=== PATIENT | female | born 1965 | race Caucasian/White ===

== ENCOUNTER 2024-11-21 13:51 | Outpatient (CLI) | payer OTHER, SELFPAY ==
--- NOTE | 2024-11-21 | ECHO_ITS ---
Patient Info Name: Skyla Kearney Age: 59 years : 1965 Gender: Female Ht: 69 in Wt: 200 lbs BSA: 2.12 m2 HR: 79 bpm BP: 141 / 88 mmHg Heart Rhythm: Sinus Rhythm Technical Quality: Good Exam Date: 11/21/2024 2:07 PM Patient Status: O Admit Date: 11/21/2024 Exam Type: CA echo doppler color flow Complete two-dimensional, color flow and Doppler transthoracic echocardiogram is performed. Handyperson: Sridevi De La Torre Attending Provider: Herson Gama Summary 1. Complete two-dimensional, color flow and Doppler transthoracic echocardiogram is performed. 2. Left ventricular chamber dimension is normal. 3. Left ventricular systolic function is normal, estimated at 60-65. 4. There is no increased left ventricular wall thickness. 5. The left ventricular diastolic function is grade I diastolic dysfunction. 6. Left atrial chamber dimension is mildly enlarged. 7. There is mild mitral valve regurgitation. 8. There is mild tricuspid valve regurgitation. Left Ventricle Left ventricular chamber dimension is normal. Left ventricular systolic function is normal, estimated at 60-65. There is no increased left ventricular wall thickness. The left ventricular diastolic function is grade I diastolic dysfunction. Right Ventricle Right ventricular chamber dimension is normal. Right ventricular systolic function is normal. Left Atria Left atrial chamber dimension is mildly enlarged. Right Atria Right atrial chamber dimension is normal. Atrial Septum Intact interatrial septum visualized by color flow imaging. Aortic Valve The aortic valve is trileaflet. There is mild aortic valve sclerosis. There is no aortic valve stenosis. There is trace aortic valve regurgitation. Pulmonic Valve The pulmonic valve is normal. There is no pulmonic valve stenosis. There is trace pulmonic regurgitation. Mitral Valve The mitral valve has thickened leaflets. There is no mitral valve stenosis. There is mild mitral valve regurgitation. Tricuspid Valve The tricuspid valve leaflets are normal. There is no significant tricuspid valve stenosis. There is mild tricuspid valve regurgitation. No pulmonary hypertension, estimated pulmonary arterial systolic pressure is 30 mmHg. Pericardium/Pleural The pericardium appears normal. There is no pericardial effusion. Inferior Vena Cava Normal inferior vena cava with <50% collapse upon inspiration consistent with elevated right atrial pressure, 10 mmHg. Aorta The aortic root size at the sinus of Valsalva is normal. Left Ventricular Outflow Tract Name Value Normal LVOT 2D LVOT Diameter 2.0 cm LVOT Doppler LVOT Peak Velocity 98 cm/s LVOT Peak Gradient 4 mmHg LVOT Mean Gradient 2 mmHg LVOT VTI 18 cm LVOT VTI/AV VTI Ratio 0.6 LVOT Stroke Volume 54 ml LVOT CO 3.7 l/min LVOT CI 1.7 l/min/m2 Pulmonic Valve Name Value Normal RVOT Doppler RVOT Peak Velocity 74 cm/s RVOT Peak Gradient 2 mmHg PV Doppler PV Peak Velocity 110 cm/s PV Peak Gradient 5 mmHg Mitral Valve Name Value Normal MV Diastolic Function MV E Peak Velocity 82 cm/s MV A Peak Velocity 96 cm/s MV E/A 0.9 MV Decel Time (PW) 276 ms MV Annular TDI MV E/e' (Septal) 9.9 MV E/e' (Lateral) 12.2 MV E/e' (Average) 11.1 Tricuspid Valve Name Value Normal TV Regurgitation Doppler TR Peak Velocity 224 cm/s TR Peak Gradient 20 mmHg Estimated PAP/RSVP RA Pressure 10 mmHg <=5 PA Systolic Pressure 30 mmHg <36 RV Systolic Pressure 30 mmHg <36 TV Annular TDI TV Lateral Jaleesa s' Velocity 13.6 cm/s >=9.5 Aorta Name Value Normal Ascending Aorta Ao Root Diameter (MM) 2.8 cm Ao Root Diam Index (MM) 1.3 cm/m2 Aortic Valve Name Value Normal AV Doppler AV Peak Velocity 133 cm/s AV Peak Gradient 7 mmHg AV Mean Gradient 4 mmHg AV VTI 27 cm AV Area (Cont Eq VTI) 2.0 cm2 >=3.0 AV Area (Cont Eq Anil) 2.3 cm2 AV DI (Anil) 0.74 AV Regurgitation 2D LVOT Area 3.1 cm2 Ventricles Name Value Normal LV Dimensions 2D/MM IVS Diastolic Thickness (2D) 0.9 cm 0.6-1.0 LVID Diastole (2D) 4.1 cm 3.8-5.2 LVIW Diastolic Thickness (2D) 0.8 cm 0.6-0.9 LVID Systole (2D) 2.5 cm 2.2-3.5 LVOT Diameter 2.0 cm LV Mass (2D Cubed) 103.62 g 67.00-162.00 LV Mass Index (2D Cubed) 49 g/m2 43-95 Relative Wall Thickness (2D) 0.39 <=0.42 LV Fractional Shortening/Ejection Fraction 2D/MM LV Fractional Shortening (2D) 38 % 27-45 LV EF (2D Teichholz) 69 % LV Diastolic Volume (4C MOD) 43 ml LV EF (4C MOD) 61 % LV Diastolic Volume (2C MOD) 48 ml LV EF (2C MOD) 61 % LV Diastolic Volume (BP MOD) 46 ml 46-106 LV Diastolic Volume Index (BP MOD) 22 ml/m2 29-61 LV Systolic Volume (BP MOD) 18 ml 14-42 LV Systolic Volume Index (BP MOD) 9 ml/m2 8-24 LV EF (BP MOD) 60 % 54-74 LV Diastolic Length (4C) 7.0 cm LV Systolic Length (4C) 5.5 cm LV Stroke Volume (4C MOD) 27 ml Atria Name Value Normal LA Dimensions LA Dimension (MM) 4.0 cm 2.7-3.8 LA Volume (4C A-L) 42 ml LA Volume (BP A-L) 52 ml RA Dimensions RA Area (4C) 14.3 cm2 <=18.0 Report Signatures
--- OUTSIDE RECORDS SUMMARY | 2024-11-21 14:07 | XMS_ITS | Encounter Summary ---
Author Organization [facility] Healthcare Address [address] [place] [address] Care Team Providers Care Shipper Receiver Name Role Phone Herson Gama MD Primary Care Provider [phone] Brandy Lindo MD Primary Care Provider [phone] Encounter Details Date Type Department Care Team (Late st Contact Info) Description 02/13/2019 Telephone [facility] [address] [facility] [facility] [address] [place] [address] Dunia Souza, RT Social History Tobacco Use Types Packs/Day Years Used Date Smoking Tobacco: Never Smokeless Tobacco: Never Alcohol Use Standard Drinks/Week Comments No 0 (1 standard drink = 0.6 oz pur e alcohol) Comments No Sex and Gender Information Value Date Recorded Sex Assigned at Not on file 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
--- OUTSIDE RECORDS SUMMARY | 2024-11-21 14:07 | XMS_ITS | Data Portability ---
Author Organization [facility] Address [address] [facility] [place] [address] Care Team Providers Care Spring Encaser Name Role Phone HERSON GAMA Primary Care Provider [phone] KANE MEJIA Waste Reclaimer Assessment Encounter Date Assessment Date Assessment LastModified by Organization Details LastModified Time 10/29/2024 10/29/2024 We will go ahead and start losartan 25 mg daily after about 1-2 weeks start atorvastatin 10 mg daily I do have copies of her last blood work about a year ago where total cholesterol was 220 LDL 139 triglycerides of 349. Today her EKG shows a sinus arrhythmia with a PVC appears to have some low voltage QRS precordial and some poor R-wave progression across the precordial leads CBC CMP lipid with cardio inflammatory markers T3-T4 TSH lipoprotein a level. Complete echo. I have recommended cardiac calcium scoring. I will see her back in 1 month obtain records from previous primary care clinic we did discuss weight loss as well she wants to hold off on discussing any GLP 1 agents further [email or web address] Not available 10/29/2024 20:58:26 Plan of Treatment Reminders Order Date Submit Date Provider Last Modified By Organization Details Last Modified Time Details Appointments ANY 15 2024 10:30A M Herson Gama MD Not available Not available Not available Lab lipoprote in (A), serum 2024 025 [facility], [address] [address], [place], [address], 11/19/2024 04:17:25 lipid panel, blood 2024 025 [facility], [address] [address], [place], [address], 11/02/2024 16:20:43 CMP, serum or plasma 2024 025 [facility], [address] [address], [place], [address], 11/02/2024 16:20:43 CBC w/ auto diff 2024 025 [facility], [address] [address], [place], [address], 11/02/2024 16:20:42 TSH, serum or plasma 2024 025 [facility], [address] [facility] [address], [place], [address], 11/20/2024 14:22:33 T4, free, serum 2024 025 [facility], [address] [address], [place], [address], 11/20/2024 14:22:33 T3, free, serum or plasma 2024 025 [facility], [address] [address], [place], [address], 11/20/2024 14:22:33 Referral None recorded. Procedures None recorded. Surgeries None recorded. Imaging US, echocardi ogram 2024 025 [facility] [address], [place], [address], 10/30/2024 11:14:41 CT, coronary calcium score 2024 025 [facility], [address], [place], [address], 10/30/2024 11:15:24 Medication Orders None recorded. Patient TargetsNo targets recorded. Patient Instructions Encounter Date Encounter Id Patient Instructions Last Modified By Organization Details Last Modified Time 10/29/2024 [id number] A healthy lifestyle: care instructions [email or web address] Not available 10/29/2024 16:40:16 Reason for Referral None Reported. Results Created Date Observation Date Name Description Value Unit Range Abnormal Flag Note LastModifiedBy Organization Detail LastModifiedTime Result Notes None recorded. Problems Name Problem SNOMED Code Status Onset Date Resolution Date Notes Provider Name and Address Organization Details Recorded Time Electrocardiog mildred abnormal 789288451 Active 2024 DAVID Garcia, [place] - [facility] 17:27:00 Essential hypertension 92863580 Active 2024 Luigi Messer [place] null, [place] [facility] 17:27:01 Overweight 325594435 Active 2024 Luigi Messer [place], [place] [facility] 17:27:02 Overweight in adulthood with body mass index of 25 or more but less than 30 099535101 Active 2024 Luigi Messer [place], [place] [facility] 17:27:04 Mixed hyperlipidemia 241420972 Active 2024 Herson Gama MD Attn: Jena quinonez,[address] [place], [address] [place] [facility] 20:58:43 Problem Notes None recorded. Procedures Surgical History Date Name Laterality Status Provider Name and Address Organization Details Recorded Time 03/04/20 18 Total hysterectomy completed [facility] [place] [facility] 10/29/2024 16:17:34 02/02/20 09 cholecystectomy completed [facility] [place] [facility] 10/29/2024 16:17:09 10/30/19 02 appendectomy completed [facility] [place] [facility] 10/29/2024 16:16:40 09/01/18 80 rhinoseptoplasty completed [facility] [place] [facility] 10/29/2024 16:18:29 Imaging Results None recorded. Procedure Notes None recorded. Medical Equipment None Reported. Allergies Allergen ID Allergen Name Allergen Category Reaction Reaction Severity Criticality Documentation Date Start Date Code Code System Note Provider Name and Address Organization Details Recorded Time 18870709 bupropion Not available hallucina tions other Not available Not available high 10/29/20242017 81412 RxNorm Muscl e tremo rs unrec ogniz ed react ion (text : Anxie ty, code: 32475 002) (from [facility]) DAVID Castano, [place] - [facility] 5 16:14:01 Medications Name Sig Start Date Stop Date Status Note LastModified by Organization Details LastModified Time estradiol 0.075 mg/24 [address] semi[address] transdermal patch [address] 1 PATCH ON THE SKIN 2 TIMES A WEEK. active Not Available Not Available No t Available fluconazole 150 mg tablet TAKE 1 TABLET BY MOUTH EVERY DAY FOR 3 DAYS 10/29 completed Not Available Not Available Not Available prednisone 20 mg tablet TAKE 1 TABLET (20 MG TOTAL) BY MOUTH DAILY FOR 5 DAYS. 10/29 completed Not Available Not Available Not Available amoxicillin 875 mg tablet TAKE 1 TABLET BY MOUTH TWICE A DAY FOR 10 DAYS 10/29 completed Not Available Not Available Not Available alprazolam 0.25 mg tablet TAKE 1 TABLET BY MOUTH EVERY DAY NEEDED active Not Available Not Available No t Available mirtazapine 45 mg tablet TAKE 1 TABLET BY MOUTH EVERY NIGHT AT BEDTIME 10/29 completed Not Available Not Available Not Available amoxicillin 875 mg-potassium clavulanate 125 mg tablet TAKE 1 TABLET BY MOUTH EVERY 12 HOURS FOR 7 DAYS 10/29 completed Not Available Not Available Not Available nitrofuranto in monohydrate/ macrocrystal s 100 mg capsule TAKE 1 CAPSULE BY MOUTH TWICE A DAY FOR 7 DAYS 10/29 completed Not Available Not Available Not Available Vitals Date Recorded Body height Body mass index (BMI) Body weight Heart rate Oxygen saturation Oxygen saturation in Arterial blood by Pulse oximetry Systolic blood pressure Diastolic blood pressure Provider Name and Address Organization Details Last Updated DateTime 175.26 cm 29.5 kg/m2 71496.4 7 g 97 /min 97 % 97 % 140 mm[Hg] 92 mm[Hg] Angelique Menon MA [place] - [facility] 5 16:13:37 Social History Question Answer Notes LastModified by Organizat ion Details LastModified Time Tobacco Smoking Status Never Smoker Angelique Menon MA [facility], [place] - [facility] 10/29/2024 16:15:24 Are You Blind Or Do You Have Difficulty Seeing? No Information n ot available 10/29/2024 What Is Your Level Of Caffeine Consumption? Occasional Information not available 10/29/2024 In The 14 Days Before Symptom Onset, Have You Had Close Contact With A Laboratory-confirm ed COVID-19 While That Case Was Ill? No Information n ot available 10/29/2024 In The 14 Days Before Symptom Onset, Have You Had Close Contact With A Person Who Is Under Investigation For COVID-19 While That Person Was Ill? No Information not available 10/29/2024 Have You Been To An Area Known To Be High Risk For COVID-19? No Information not available 10/29/2024 Are You Deaf Or Do You Have Serious Difficulty Hearing? No Information not available 10/29/2024 Are There Any Guns Present In Your Home? No Information not available 10/29/2024 What Was The Date Of Your Most Recent Tobacco Screening? 10/29/2024 Information not available 10/29/2024 Do You Use Your Seat Belt Or Car Seat Routinely? Yes Information not available 10/29/2024 Do You Have Smoke And Carbon Monoxide Detectors In Your Home? Yes Information not available 10/29/2024 Do You Use Sunscreen Routinely? No Information not available 10/29/2024 Has Tobacco Cessation Counseling Been Provided? No Information not available 10/29/2024 Sex: Female Functional Status Question Answer Note LastModified by Organizat ion Details LastModified Time Do you use any illicit or recreational drugs? No Information not available 10/29/2024 Do you or have you ever used any other forms of tobacco or nicotine? No Information not available 10/29/2024 What is your level of alcohol consumption? Occasional Information not available 10/29/2024 Are you able to care for yourself? Yes Information n ot available 10/29/2024 Mental Status None recorded. Family History Nothing Reported. Medical History Condition Response Anxiety Disorder Y Depression Y Gynecological HistoryNo gynecological history recorded. Obstetrics History GPAL:G 0 P 0 0 0 0 Past Encounters Encounter ID Performer Location Encounter Start Date Encounter Closed Date Diagnosis/Indication Diagnosis SNOMED-CT Code Diagnosis ICD10 Code Diagnosis Note [id number] Herson Gama MD [facility] [place] [facility] [address] [place] [address] 10/29/2024 15:44:48 10/29/2024 17:24:49 Overweight in adulthood with body mass index of 25 or more but less than 30 956659203 Z68.29 Overweight 324577587 E66 .3 Essential hypertension 27155506 I10 Electrocar diogram abnormal 995475700 R94.31 Mixed hyperlipidemia 267 930786 E78.2 Adult heal th examination 034592741 Z00.00 Health Concerns Section Related Observation LastModified by Organization Detai ls LastModified Time None Recorded Concern Status LastModified by Organization Details LastModified Time None Recorded Advance Directives Directive None Recorded Payers Encounter Date Sequence Insurance Name Policy Number Policy Lombardo Covered Member ID Lombardo Member ID Guarantor Name 10/29/2024 1 [facility] [id number] Basil Kearney [id number] Skyla Christel Notes Date Note Type Note Provider Name and Address Organization Details Recorded Time 10/29/2024 text/html 59-year-old with dyslipidemia comes in establishing care medications none allergies SSRIs called mental status changes caused some mental status changes in her symptoms to be secondary to gallbladder disease she actually was evaluated at [facility] in [facility] and went through ECT that has been 5 years ago or more no problems since. Surgeries cholecystectomy appendectomy prolapsed uterus then a broken nose family history risk for cardiovascular disease mother specifically with hypertension hyperlipidemia and CVA father unfortunately about 2 weeks ago from prostate and bladder cancer he also had Parkinson's disease several uncles and aunts with heart disease socially does not smoke vape occasional alcohol she is not working currently she was up-to-date with the skin therapist had a colonoscopy 2 years ago in [place] [facility] blood [facility] glass technician appointment Herson Gama MD Attn: Accounting[address] [facility], [place], [address], [place] [facility] 10/29/2024 21:01:06 OBGyn Episode No OBEpisode recorded.
--- OUTSIDE RECORDS SUMMARY | 2024-11-21 14:07 | XMS_ITS | Clinical Summary ---
Author Organization [facility] Address [address] [place] [address] Care Team Providers Care Puttier Name Role Phone Brandy Lindo MD Primary Care Provider [phone] Allergies Active Allergy Reactions Criticality Noted Date Comments Bupropion Other (See comments),Delusions,Agitation Medium 03/15/2018 Muscle tremors Medications estradioL (VIVELLE-DOT) 0.075 mg/[address] 1 patch on the skin 2 (two) times a week 24 patch 3 08/02/2024 Active Active Problems Problem Noted Date Diagnosed Date Uterine prolapse 03/02/2018 Overview (03/02/2018): Added automatically from request for surgery [id number] Immunizations Immunization Administration Dates Next Due Influenza, Quadrivalent, Spl it, Preservative Free, Intramuscular 04/18/2022 Surgical History Surgery Date Site/Laterality Comments APPENDECTOMY CHOLECYSTECTOMY URETHRAL DIVERTICULECTOMY HYSTERECTOMY Family History Medical History Relation Name Comments Hypertension Brother Family history of hypertension - (Added by TW Conv) Cancer Father Prostate cancer Father Coronary artery disease Father's Sister 2 Coronary artery disease Father's Sister 3 Cancer Mother smoldering myel yasmeen Dementia Mother Stroke Mother Ovarian cancer Mother's Sister 1 Relation Name Status Comments Brother Daughter Alive Father Alive Father's Sister 1 Alive Father's Sister 2 (Age 70) Father's Sister 3 (Age 80) Maternal Grandmother (Age 82) Mother Alive Mother's Sister 1 Alive Mother's Sister 2 Alive Mother's Sister 3 Alive Mother's Sister 4 Alive Paternal Grandmother (Age 80) Sister Alive Social History Tobacco Use Types Packs/Day Years Used Date Smoking Tobacco: Never Smokeless Tobacco: Never Alcohol Use Standard Drinks/Week Comments No 0 (1 standard drink = 0.6 oz pur e alcohol) AUDIT-C Answer Date Recorded Q1: How often do you have a drink containing alc ohol? 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 Gender Identity Female 03/29/2024 8:09 AM CDT Sexual Orientation Not on file Obstetrics History Para Term AB IAB SAB Ectopic Multiple Livin g Live Births 3 3 3 3 3 Date Outcome GA Total Labor Labor/2nd/3rd Weight Sex Type Anes PTL Nimisha A1 A5 Name Clin 1993 Term M Vaginal Livin g Brady 1997 Term M Vaginal Livin g Benjamin 2003 Term F Vaginal Livin g Shona Last Filed Vital Signs Vital Sign Reading Time Taken Comments Blood Pressure 152/98 07/10/2024 1:08 PM BARN OPERATOR Pulse 83 03/22/2018 11:00 AM CDT Temperature 36.7 C (98 F) 03/22/2018 11:00 AM CDT Respiratory Rate 16 03/22/2018 11:00 AM CDT Oxygen Saturation 97% 03/22/2018 11:00 AM CDT Inhaled Oxygen Concentration - - Weight 92.2 kg (203 lb 4.8 oz) 07/10/2024 1:08 P M BARN OPERATOR Height 175.3 cm (5' 9 ) 07/10/2024 1:08 PM BARN OPERATOR Body Mass Index 30.02 07/10/2024 1:08 PM BARN OPERATOR Plan of Treatment Health Maintenance Due Date Last Done Comments Colon Cancer Screening-Colonoscopy 1965 Depression Screening 1965 Hepatitis C Screening 1965 Hepatitis B Screening 1982 Covid-19 Vaccine ( season) 2024 07/08/2021 Breast Cancer Screening-Mammogram 04/05/2025 04/05/2024, 03/24/2023, 03/24/2023, Additional history exists Regular Well Visit/Exam 18-64 07/10/2025 07/10/2024 DTaP/Tdap/Td Vaccine (2 - Td or Tdap) 01/17/2034 01/18/2024 Zoster Vaccine Completed 11/01/2023, 04/21/2023 Influenza Vaccine Completed 04/16/2024, , 04/18/2022, Additional history exists Pneumococcal vaccine <65 Aged Out No longer eligible based on patient's age to complete this topic Medical Devices Implanted Type Area Crotch Piece Baster Device Identifier Shelf Expiration Date Model / Serial / Lot Ocsc [id number] Upsylon 35.4cm Elongation Profile Lightweight Large Pore Low - [id number] Implanted:Qty: 1 on 03/21/2018 by Yohan Ames MD at [facility]esh N/A: Pelvis Ocsc 12/31/2020 [id number] / / [id number] Procedures Procedure Name Priority Date/Time Associated Diagnosis Comments SCREENING MAMMOGRAM BILATERAL W CHRISTIANO Schedule Routine, Read Routine (OP Routine) 04/05/2024 2:18 PM CDT Screening mammogram, encounter for from Last 3 Months or Most Recently Relevant to Health Maintenance Results * Screening Mammogram Bilateral W Christiano (04/05/2024 2:18 PM CDT) Anatomical Region Laterality Modality Breast Bilateral Mammography Narrative 04/10/2024 2:32 PM CDT Examination: Screening Mammogram Bilateral W Christiano: 04/05/24 Clinical: Screening mammogram, encounter for. Prior Study Comparisons: Comparison was made to the prior available relevant studies at the time of interpretation. Findings: Screening Mammogram Bilateral W Christiano Bilateral No significant masses, malignant type calcifications, skin thickening, nipple retraction, or significant lymphadenopathy is noted in either breast. Computer Aided Detection was utilized for the interpretation of this study. There are scattered areas of fibroglandular density. The patient will be notified of results by letter. Impression: BI-RADS ATLAS category (overall): 1 - Negative Overall Assessment: 1 - Negative Recommendation: - Routine Screening Mammogram in 1 Yr for both breasts. us Self Screening Mammogram IMG MAMMO PROCEDURES Fi nal Result from Last 3 Months or Most Recently Relevant to Health Maintenance Insurance ACE*COMM ACCESS OOS [employer] OOS [facility] CHOICE PLUS Advance Directives For more information, please contact: [phone] Documents on File Type Date Recorded Patient Aircraft General Repair Mechanic Expl anation ADVANCE DIRECTIVE 03/21/2018 7:09 AM * Full Code (Latest Code Status on File) Date Activated Date Inactivated Comments 03/21/2018 2:33 PM 03/22/2018 4:02 PM Care Teams Puttier Relationship Specialty Start Date End Date Brandy Lindo MD [address] [facility] [address] [place] [address] PCP - General Obstetrics and Gynecology 02/02/23
--- OUTSIDE RECORDS SUMMARY | 2024-11-21 14:07 | XMS_ITS | Clinical Summary ---
Author Organization [facility] Address [address] [place] [address] Care Team Providers Care Home Therapy Clinician Name Role Phone Unavailable Primary Care Provider Unavailabl e Immunizations Immunization Administration Dates Next Due Covid-19, Mrna, Lnp-s, Pf, 30 Mcg/0.3 Ml Dose (P fizer) 07/08/2021 Social History Tobacco Use Types Packs/Day Years Used Date Smoking Tobacco: Never Assessed Comments Unknown Sex and Gender Information Value Date Recorded Sex Assigned at Not on file Legal Sex Female 11:27 AM RN OCCUPATIONAL Gender Identity Not on file Sexual Orientation Not on file Plan of Treatment Health Maintenance Due Date Last Done Comments Hepatitis C Virus (HCV) Screening 1964 TdaP Immunization 1964 Hepatitis B Immunization (1 of 3 - 19+ 3-dose series) 10/17/1983 Colonoscopy 2009 Colorectal Cancer Screening 2009 Cologuard 2014 Immunochemical Fecal Occult Blood 2014 Pneumococcal Immunization (5 0+ years) (1 of 1 - PCV) 2014 Zoster Immunization (1 of 2) 2014 Influenza Immunization (#1) 2024 04/16/2017 SARS-COV-2 Immunization ( - 2023- season) 2024 07/08/2021, 09/08/2020 Respiratory Syncytial Virus (RSV) Immunization (Adult) (1 - 1-dose 75+ series) 10/17/2039 Cervical Cancer Screening (CCS) Discontinued Pap Smear Discontinued 04/14/2020 HPV/Cotest Discontinued Meningococcal Immunization (ACWY) Aged Out No longer eligible based on patient's age to complete this topic Rotavirus Immunization Aged Out No lo nger eligible based on patient's age to complete this topic
--- OUTSIDE RECORDS SUMMARY | 2024-11-21 14:07 | XMS_ITS | Encounter Summary ---
Author Organization [facility] Address [address] [place] [address] Care Team Providers Care Field Auditor Name Role Phone Unavailable Primary Care Provider Unavailabl e Encounter Details Date Type Department Care Team (Late st Contact Info) Description 12/06/2003 Outpatient Historical [facility] [place] [place] [address] [place] [address] Mk Moore, DO [address] [address] Social History Tobacco Use Types Packs/Day Years Used Date Smoking Tobacco: Never Assessed Comments Unknown Sex and Gender Information Value Date Recorded Sex Assigned at Not on file Legal 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
--- OUTSIDE RECORDS SUMMARY | 2024-11-21 14:07 | XMS_ITS | CONTINUITY OF CARE DOCUMENT ---
Author Name carlin gillis Address Unknown Organization [facility] Address [address] [address] [facility] [address] [place] [address] Phone [phone] Care Team Providers Care Cruise Director Name Role Phone Barbara SHELTON, Jessica Unavailable [phone] Herson Gama DO Unavailable [phone] Herson Gama DO Unavailable PROBLEMS Condition Status Date Provider Notes Cardiovascular screening active Judi Moore rd Abnormal electrocardiogram active Judi angel [employer]ANCE PROVID[employer] Payer name Policy type / Coverage type [place] red libertarian ID SELF PAY TREATMENT PLAN Date Name CT, Coronary Calcium Score
--- OUTSIDE RECORDS SUMMARY | 2024-11-21 14:07 | XMS_ITS | Referral Summary ---
Author Organization [facility] Address [address] [place] [address] Care Team Providers Care Chief Construction Inspector Name Role Phone Brandy Lindo MD Primary Care Provider Allergies Active Allergy Reactions Criticality Noted Date Comments Bupropion Other (See comments),Delusions,Agitation Medium 03/15/2018 Muscle tremors Medications estradioL (VIVELLE-DOT) 0.075 mg/[address] 1 patch on the skin 2 (two) times a week 24 patch 3 08/02/2024 Active Active Problems Problem Noted Date Diagnosed Date Uterine prolapse 03/02/2018 Overview (03/02/2018): Added automatically from request for surgery [id number] Immunizations Immunization Administration Dates Next Due Influenza, Quadrivalent, Spl it, Preservative Free, Intramuscular 04/18/2022 Social History Tobacco Use Types Packs/Day Years [...] on file 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 Gender Identity Female 03/29/2024 8:09 AM CDT Sexual Orientation Not on file Last Filed Vital Signs Vital Sign Reading Time Taken Comments Blood Pressure 152/98 07/10/2024 1:08 PM WEB DESIGN INSTRUCTOR Pulse 83 03/22/2018 11:00 AM CDT Temperature 36.7 C (98 F) 03/22/2018 11:00 AM CDT Respiratory Rate 16 03/22/2018 11:00 AM CDT Oxygen Saturation 97% 03/22/2018 11:00 AM CDT Inhaled Oxygen Concentration - - Weight 92.2 kg (203 lb 4.8 oz) 07/10/2024 1:08 P M WEB DESIGN INSTRUCTOR Height 175.3 cm (5' 9 ) 07/10/2024 1:08 PM WEB DESIGN INSTRUCTOR Body Mass Index 30.02 07/10/2024 1:08 PM WEB DESIGN INSTRUCTOR Plan of Treatment Not on file Medical Devices Implanted Type Area Media Producer Device Identifier Shelf Expiration Date Model / Serial / Lot [employer] [id number] Upsylon 35.4cm Elongation Profile Lightweight Large Pore Low - [id number] Implanted:Qty: 1 on 03/21/2018 by Yohan Ames MD at [facility] Mesh N/A: Pelvis [employer] 12/31/2020 [id number] / / [id number] Procedures Procedure Name Priority Date/Time Associated Diagnosis [...] Most Recently Relevant to Health Maintenance Insurance [employer] [facility] CHOICE [facility]US [facility] HMO/PPO Address: [place] [address] Advance Directives For more information, please contact: [phone] Documents on File Type Date Recorded Patient Backfiller Expl anation ADVANCE DIRECTIVE 03/21/2018 7:09 AM * Full Code (Latest Code Status on File) Date Activated Date Inactivated Comments 03/21/2018 2:33 PM 03/22/2018 4:02 PM Care Teams Chief Construction Inspector Relationship Specialty Start Date End Date Brandy Lindo MD [address] [facility] [address] [place] [address] PCP - General Obstetrics and Gynecology 02/02/23
--- OUTSIDE RECORDS SUMMARY | 2024-11-21 14:07 | XMS_ITS | Clinical Summary ---
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 Gender Identity Not on file Sexual Orientation Not on file Plan of Treatment Health Maintenance Due Date Last Done Comments DTAP/TDAP/TD VACCINES (1 - Tdap) 10/17/1983 HPV/Cotest (21-29) 1985 CERVICAL CANCER SCREENING 1994 HPV/Cotest (30-65) 1994 PAP SMEAR 1994 BREAST CANCER SCREENING 2004 COLORECTAL SCREENING 2009 Colorectal Cancer Screening 2009 FIT-DNA Q 3 years 2009 FIT/FOBT Q 1 year 2009 Flex Sig/CT Colonography Q 5 years 2009 ZOSTER VACCINE (1 of 2) 2014 INFLUENZA VACCINE (#1) 2024 RSV VACCINE (60+ or ) (1 - 1-dose 75+ series) 10/17/2039 HEPATITIS B VACCINES Aged Out No long er eligible based on patient's age to complete this topic
--- OUTSIDE RECORDS SUMMARY | 2024-11-21 14:07 | XMS_ITS | Clinical Summary ---
Author Organization [facility] Address [address] [place] [address] Care Team Providers Care Piping Designer Name Role Phone Unavailable Primary Care Provider Unavailabl e Source Comments [facility],non-owned Affiliates and Associated Physician Practices is amultiple site organization consisting of ambulatory clinics and hospital sitesin [place], [place], [place] and [place]. This disclosure is being madepursuant to the Care Everywhere program and may not contain all information available regarding this patient. Last updated 18.[facility] Social History Tobacco Use Types Packs/Day Years Used Date Smoking Tobacco: Never Assessed Comments Unknown Sex and Gender Information Value Date Recorded Sex Assigned at Not on file Legal Sex Female 6:40 AM PERIANESTHESIA RN Gender Identity Not on file Sexual Orientation Not on file Plan of Treatment Health Maintenance Due Date Last Done Comments COLOGUARD (AGES 45-75) - COL ON CA SCREENING 1964 COLON MONITORING 1964 COLONOSCOPY - COLON CA SCREENING 1964 CT COLONOGRAPHY - COLON CA SCREENING 1964 Colorectal Cancer Screening 1964 FIT - COLON CA SCREENING 1964 FLEX SIG - COLON CA SCREENING 1964 LIPID TESTING 1964 MAMMOGRAM 1964 HIV SCREENING 10/17/1979 HEPATITIS C SCREENING 10/12/1982 DTAP/TDAP/TD VACCINES (1 - Tdap) 10/17/1983 PNEUMOCOCCAL VACCINE 50+ (1 of 1 - PCV) 2014 ZOSTER VACCINE (1 of 2) 2014 COVID-19 VACCINE ( - 2023-2 5 season) 2024 DEPRESSION SCREENING 07/04/2024 INFLUENZA VACCINE (Season Ended) 2025 Respiratory Syncytial Virus (RSV) Vaccine Pt: or over 60 yrs (1 - 1-dose 75+ series) 10/17/2039 HEPATITIS B VACCINE Aged Out No longe r eligible based on patient's age to complete this topic HIB VACCINE Aged Out No longer eligi ble based on patient's age to complete this topic HPV VACCINE Aged Out No longer eligi ble based on patient's age to complete this topic MENINGOCOCCAL (Group B) VACC INE SHARED DECISION-MAKING Aged Out No longer eligibl e based on patient's age to complete this topic MENINGOCOCCAL GROUPS A/C/Y/W VACCINE Aged Out No longer eligible b ased on patient's age to complete this topic
== END 2024-11-21 13:52 | disposition home or self-care (01) ==
PROVIDERS: PCP Internal Medicine; Visit Provider Internal Medicine
DX: R94.31 Abnormal electrocardiogram [ECG] [EKG] (principal); I36.1 Nonrheumatic tricuspid (valve) insufficiency; I34.0 Nonrheumatic mitral (valve) insufficiency
CPT/HCPCS: 93306